=== PATIENT | female | born 1995 | race American Indian/Alaskan Native ===

== ENCOUNTER 2020-10-01 17:26 | Emergency (ER) | payer SELFPAY ==
[2020-10-01 18:04] VITALS: BP 160/76
[2020-10-01] MEDS ORDERED: ACETAMINOPHEN 325 MG TAB PO ONE (18:09)
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
== END 2020-10-01 19:51 | disposition home or self-care (01) ==
LOC: ED 17:26
DX: S01.512A Laceration without foreign body of oral cavity, initial encounter (principal); S10.93XA Contusion of unspecified part of neck, initial encounter; H11.32 Conjunctival hemorrhage, left eye; Z79.899 Other long term (current) drug therapy; Y04.8XXA Assault by other bodily force, initial encounter; Y93.89 Activity, other specified; Y92.89 Other specified places as the place of occurrence of the external cause; Y99.8 Other external cause status
CPT/HCPCS: 70450; 70486; 72125